=== PATIENT | female | born 1945 | race Caucasian/White ===

== ENCOUNTER 2020-02-12 14:06 | Inpatient (IN) ==
[2020-02-12] MEDS ORDERED: ONDANSETRON 4 MG/2 ML VIAL IV STA (14:46)
[2020-02-12] MEDS ORDERED: SODIUM CHLORIDE 0.9% 1,000 ML IV STA (14:46)
[2020-02-12 15:24] LABS: Basophils % 0.1 % (0.0-0.8); Hematocrit 39.2 VOL% (35.7-47.0); Hemoglobin 12.7 GM/DL (12.0-16.0); Immature Granulocytes % 0.4 %; Immature Granulocytes Absolute 0.06 #; Lymphocytes # 0.3 10*3/uL (1.4-4.0); Lymphocytes % 1.8 % (21.3-54.2); Mean Corpuscular HGB Conc 32.4 GM/DL (32-36); Mean Corpuscular Volume 97.3 FL (87-102); Mean Platelet Volume 11.8 FL (9.6-12.0); NRBC # 0.03 10*3/uL; Neutrophils % 94.7 % (38.7-73.9); Platelet Count 168 T/CUMM (130-400); Red Blood Count 4.03 MC/CUMM (3.8-5.5); Red Cell Distribution Width 13.2 % (9.3-17.3); White Blood Count 15.8 T/CUMM (4-12)
[2020-02-12 15:44] LABS: Band Neutrophils 15 % (0-10); Segmented Neutrophils 84 % (50-85); Total Cells Counted 100
[2020-02-12 15:45] LABS: Albumin 3.4 G/DL (3.4-5.0); Bilirubin,Total 0.8 MG/DL (0.2-1.0); Calcium 9.1 MG/DL (8.5-10.1); Osmolality,Calculated 266.4 MOS/KG (273-304); Platelet Estimate Adequate; Total Protein 7.7 G/DL (6.4-8.3)
[2020-02-12] MEDS ORDERED: PIPERACILLIN/TAZOBACTAM 3,375 MG in SODIUM CHLORIDE 0.9% 100 ML IV STA (16:14)
[2020-02-12] MEDS ORDERED: PIPERACILLIN/TAZOBACTAM 3,375 MG VIAL IV ONE (16:18)
[2020-02-12] MEDS ORDERED: SODIUM CHLORIDE 0.9% 100 ML IV ONE (16:19)
[2020-02-12] MEDS ORDERED: PROMETHAZINE 25 MG/1 ML VIAL ONE (16:23)
[2020-02-12] MEDS ORDERED: PROMETHAZINE 25 MG/1 ML VIAL IM STA (16:32)
[2020-02-12] MEDS ORDERED: DEXTROSE 10% 250 ML BAG IV PRN (16:46)
[2020-02-12] MEDS ORDERED: GLUCAGON 1 MG VIAL IM PRN (16:46)
[2020-02-12] MEDS ORDERED: LORazepam 1 MG TABLET PO PRN (16:51)
[2020-02-12] MEDS: SODIUM CHLORIDE 0.9% 1,000 ML IV SCH (18:58)
[2020-02-12] MEDS: PANTOPRAZOLE 40 MG TABLET PO SCH (20:49)
[2020-02-12] MEDS: ZALEPLON 5 MG CAPSULE PO SCH (20:50)
[2020-02-12] MEDS ORDERED: ASPIRIN EC 81 MG TABLET PO SCH (21:00)
[2020-02-12] MEDS: HYDROmorphone 2 MG/1 ML VIAL IV PRN (22:13)
[2020-02-13] MEDS: PIPERACILLIN/TAZOBACTAM 3,375 MG in SODIUM CHLORIDE 0.9% 100 ML IV SCH ×3 (04:13→20:59)
[2020-02-13] MEDS: SODIUM CHLORIDE 0.9% 1,000 ML IV SCH (04:23)
[2020-02-13 05:33] LABS: Apearance,Urine CLEAR (Clear); Bilirubin,Urine Negative (Negative); Blood, Urine Negative (Negative); Glucose,Urine (UA) Negative (Negative); Ketones,Urine 5 mg/dL (Negative); Mucus,Urine Many /LPF (Occasional); Nitrite,Urine Negative (Negative); Protein,Urine Negative; RBC,Urine 2 /HPF (0-4); Squamous Epithelial Cell,Urine Occasional /HPF (0-10); Urine Color Yellow (Yellow); Urine Specific Gravity 1.016 (1.001-1.035); Urine Urobilinogen < 2.0 EU/DL (0.2-1.0); WBC,Urine 2 /HPF (0-6)
[2020-02-13 07:06] LABS: Basophils % 0.1 % (0.0-0.8); Hematocrit 36.4 VOL% (35.7-47.0); Hemoglobin 11.7 GM/DL (12.0-16.0); Immature Granulocytes % 0.4 %; Immature Granulocytes Absolute 0.07 #; Lymphocytes # 0.4 10*3/uL (1.4-4.0); Lymphocytes % 2.2 % (21.3-54.2); Mean Corpuscular HGB Conc 32.1 GM/DL (32-36); Mean Corpuscular Volume 98.6 FL (87-102); Mean Platelet Volume 12.3 FL (9.6-12.0); Monocytes % 3.9 % (1.7-12.7); Neutrophils % 93.4 % (38.7-73.9); Platelet Count 177 T/CUMM (130-400); Red Blood Count 3.69 MC/CUMM (3.8-5.5); Red Cell Distribution Width 13.4 % (9.3-17.3); White Blood Count 18.1 T/CUMM (4-12)
[2020-02-13 07:24] LABS: Band Neutrophils 4 % (0-10); Hypochromasia 1+; Lymphocytes 3 % (20-55); Platelet Estimate Adequate; Segmented Neutrophils 88 % (50-85); Total Cells Counted 100
[2020-02-13 07:28] LABS: Albumin 2.8 G/DL (3.4-5.0); Calcium 8.6 MG/DL (8.5-10.1); Osmolality,Calculated 270.1 MOS/KG (273-304); Total Protein 6.9 G/DL (6.4-8.3)
[2020-02-13] MEDS ORDERED: LINACLOTIDE PO SCH (09:00)
[2020-02-13] MEDS: POLYETHYLENE GLYCOL POWDER 17 GM PACK PO SCH ×3 (10:13→14:18)
[2020-02-13] MEDS: PANTOPRAZOLE 40 MG TABLET PO SCH ×2 (10:16→20:59)
[2020-02-13] MEDS ORDERED: LACTATED RINGERS 1,000 ML IV SCH (12:00)
[2020-02-13] MEDS: ZALEPLON 5 MG CAPSULE PO SCH (20:59)
[2020-02-13] MEDS: LACTATED RINGERS 1,000 ML IV SCH (22:15)
[2020-02-13] MEDS: ONDANSETRON 4 MG/2 ML VIAL IV PRN (22:30)
[2020-02-14] MEDS: PIPERACILLIN/TAZOBACTAM 3,375 MG in SODIUM CHLORIDE 0.9% 100 ML IV SCH ×3 (03:39→18:50)
[2020-02-14] MEDS: LACTATED RINGERS 1,000 ML IV SCH ×2 (04:04→19:24)
[2020-02-14 05:59] LABS: Albumin 2.7 G/DL (3.4-5.0); Bilirubin,Total 1.4 MG/DL (0.2-1.0); Calcium 8.8 MG/DL (8.5-10.1); Total Protein 6.9 G/DL (6.4-8.3)
[2020-02-14] MEDS: POLYETHYLENE GLYCOL POWDER 17 GM PACK PO SCH ×4 (09:57→15:58)
[2020-02-14] MEDS: ONDANSETRON 4 MG/2 ML VIAL IV PRN ×2 (09:57→18:50)
[2020-02-14] MEDS: PANTOPRAZOLE 40 MG TABLET PO SCH ×2 (09:57→20:30)
[2020-02-14] MEDS: PROMETHAZINE 25 MG/1 ML VIAL IM PRN (20:28)
[2020-02-14] MEDS: ZALEPLON 5 MG CAPSULE PO SCH (20:30)
[2020-02-14] MEDS: HYDROmorphone 2 MG/1 ML VIAL IV PRN (20:35)
[2020-02-15] MEDS: PIPERACILLIN/TAZOBACTAM 3,375 MG in SODIUM CHLORIDE 0.9% 100 ML IV SCH ×3 (04:00→18:19)
[2020-02-15] MEDS: LACTATED RINGERS 1,000 ML IV SCH (04:10)
[2020-02-15] MEDS: POLYETHYLENE GLYCOL POWDER 17 GM PACK PO SCH ×5 (07:05→16:13)
[2020-02-15 07:34] LABS: Albumin 2.6 G/DL (3.4-5.0); Bilirubin,Total 0.8 MG/DL (0.2-1.0); Calcium 8.3 MG/DL (8.5-10.1); Osmolality,Calculated 271.8 MOS/KG (273-304); Total Protein 6.5 G/DL (6.4-8.3)
[2020-02-15] MEDS ORDERED: POTASSIUM CHLORIDE 20 MEQ TABLET PO ONE (08:21)
[2020-02-15] MEDS: PROMETHAZINE 25 MG/1 ML VIAL IM PRN (09:27)
[2020-02-15] MEDS: PANTOPRAZOLE 40 MG TABLET PO SCH ×2 (09:28→22:09)
[2020-02-15] MEDS: SODIUM BICARB INJ 100 MEQ in DEXTROSE 5% NACL 0.45% 1,000 ML IV SCH ×2 (10:28→23:38)
[2020-02-15] MEDS: HYDROmorphone 2 MG/1 ML VIAL IV PRN (11:37)
[2020-02-15] MEDS: ZALEPLON 5 MG CAPSULE PO SCH (22:09)
[2020-02-16] MEDS: PIPERACILLIN/TAZOBACTAM 3,375 MG in SODIUM CHLORIDE 0.9% 100 ML IV SCH ×3 (02:36→18:08)
[2020-02-16 04:51] LABS: Basophils % 0.5 % (0.0-0.8); Eosinophils # 0.1 10*3/uL (0.0-0.87); Eosinophils % 1.3 % (0.00-10.9); Hematocrit 37.4 VOL% (35.7-47.0); Hemoglobin 11.8 GM/DL (12.0-16.0); Immature Granulocytes % 0.4 %; Immature Granulocytes Absolute 0.03 #; Lymphocytes # 0.8 10*3/uL (1.4-4.0); Lymphocytes % 9.7 % (21.3-54.2); Mean Corpuscular HGB Conc 31.6 GM/DL (32-36); Mean Corpuscular Volume 98.9 FL (87-102); Monocytes % 11.4 % (1.7-12.7); Neutrophils % 76.7 % (38.7-73.9); Platelet Count 190 T/CUMM (130-400); Red Blood Count 3.78 MC/CUMM (3.8-5.5); Red Cell Distribution Width 13.3 % (9.3-17.3); White Blood Count 7.8 T/CUMM (4-12)
[2020-02-16 05:06] LABS: PT Patient Result 11.2 SECS (9.8-11.9)
[2020-02-16 05:23] LABS: Albumin 2.6 G/DL (3.4-5.0); Bilirubin,Total 0.8 MG/DL (0.2-1.0); Calcium 8.2 MG/DL (8.5-10.1); Osmolality,Calculated 276.7 MOS/KG (273-304); Total Protein 6.7 G/DL (6.4-8.3)
[2020-02-16] MEDS: SODIUM BICARB INJ 100 MEQ in DEXTROSE 5% NACL 0.45% 1,000 ML IV SCH (08:12)
[2020-02-16] MEDS: POTASSIUM CHLORIDE RIDER 10 MEQ in PREMIX 1 EACH IV SCH ×6 (08:18→18:09)
[2020-02-16] MEDS: POLYETHYLENE GLYCOL POWDER 17 GM PACK PO SCH ×4 (08:21→15:20)
[2020-02-16] MEDS: PANTOPRAZOLE 40 MG TABLET PO SCH ×2 (08:22→21:44)
[2020-02-16] MEDS: PROMETHAZINE 25 MG/1 ML VIAL IM PRN (08:29)
[2020-02-16] MEDS ORDERED: POTASSIUM CHLORIDE 20 MEQ TABLET PO SCH (09:00)
[2020-02-16] MEDS: HYDROmorphone 2 MG/1 ML VIAL IV PRN (10:21)
[2020-02-16] MEDS ORDERED: POTASSIUM CHLORIDE RIDER 10 MEQ in PREMIX 1 EACH IV SCH (18:30)
[2020-02-16] MEDS: ZALEPLON 5 MG CAPSULE PO SCH (21:44)
[2020-02-17] MEDS: HYDROmorphone 2 MG/1 ML VIAL IV PRN ×2 (02:03→22:39)
[2020-02-17] MEDS: PIPERACILLIN/TAZOBACTAM 3,375 MG in SODIUM CHLORIDE 0.9% 100 ML IV SCH ×3 (03:26→20:35)
[2020-02-17 06:02] LABS: Basophils # 0.1 10*3/uL (0.0-0.2); Basophils % 0.8 % (0.0-0.8); Eosinophils # 0.2 10*3/uL (0.0-0.87); Eosinophils % 3.4 % (0.00-10.9); Hematocrit 34.6 VOL% (35.7-47.0); Hemoglobin 11.2 GM/DL (12.0-16.0); Immature Granulocytes % 0.5 %; Immature Granulocytes Absolute 0.03 #; Lymphocytes # 1.2 10*3/uL (1.4-4.0); Lymphocytes % 19.3 % (21.3-54.2); Mean Corpuscular HGB Conc 32.4 GM/DL (32-36); Mean Corpuscular Volume 97.5 FL (87-102); Mean Platelet Volume 11.4 FL (9.6-12.0); Monocytes % 11.1 % (1.7-12.7); Neutrophils % 64.9 % (38.7-73.9); Platelet Count 184 T/CUMM (130-400); Red Blood Count 3.55 MC/CUMM (3.8-5.5); Red Cell Distribution Width 13.2 % (9.3-17.3); White Blood Count 6.4 T/CUMM (4-12)
[2020-02-17 06:18] LABS: Albumin 2.6 G/DL (3.4-5.0); Calcium 8.6 MG/DL (8.5-10.1); Total Protein 6.8 G/DL (6.4-8.3)
[2020-02-17] MEDS: POLYETHYLENE GLYCOL POWDER 17 GM PACK PO SCH ×4 (07:08→16:46)
[2020-02-17] MEDS ORDERED: SODIUM PHOSPHATE ENEMA 133 ML BOTTLE RECTAL ONE (08:30)
[2020-02-17] MEDS ORDERED: LIDOCAINE 100 MG/5 ML SYRINGE ONE (09:00)
[2020-02-17] MEDS ORDERED: PHENYLEPHRINE 1 MG/10 ML SYRINGE IV ONE (09:00)
[2020-02-17] MEDS ORDERED: ONDANSETRON 4 MG/2 ML VIAL ONE (09:00)
[2020-02-17] MEDS ORDERED: propofoL 200 MG/20 ML VIAL IV ONE (09:00)
[2020-02-17] MEDS: LACTATED RINGERS 1,000 ML IV SCH (09:29)
[2020-02-17] MEDS: POTASSIUM CHLORIDE RIDER 10 MEQ in PREMIX 1 EACH IV SCH ×2 (09:31→14:30)
[2020-02-17] MEDS: PANTOPRAZOLE 40 MG TABLET PO SCH ×2 (09:38→20:35)
[2020-02-17] MEDS ORDERED: INDOCYANINE GREEN 25 MG VIAL IV ONE (10:00)
[2020-02-17] MEDS ORDERED: cefOXitin 2,000 MG in SYRINGE 1 EACH IV ONE (10:00)
[2020-02-17] MEDS: ZALEPLON 5 MG CAPSULE PO SCH (20:35)
[2020-02-18] MEDS: PIPERACILLIN/TAZOBACTAM 3,375 MG in SODIUM CHLORIDE 0.9% 100 ML IV SCH (02:53)
[2020-02-18] MEDS ORDERED: BUPIVACAINE MPF 0.25% 30 ML VIAL ONE (06:20)
[2020-02-18] MEDS ORDERED: LIDOCAINE 1%/EPI INJ 20 ML VIAL ONE (06:20)
[2020-02-18] MEDS ORDERED: TISSUE ADHESIVE 1 EACH APPLICATOR TOP ONE (06:20)
[2020-02-18 07:59] LABS: Calcium 8.4 MG/DL (8.5-10.1); Osmolality,Calculated 270.8 MOS/KG (273-304)
[2020-02-18] MEDS: PANTOPRAZOLE 40 MG TABLET PO SCH (09:16)
[2020-02-18] MEDS: POLYETHYLENE GLYCOL POWDER 17 GM PACK PO SCH ×3 (09:21→15:01)
[2020-02-18] MEDS: LACTATED RINGERS 1,000 ML IV SCH (10:04)
[2020-02-18 11:46] VITALS: BP 134/59
[2020-02-18] MEDS: ONDANSETRON 4 MG/2 ML VIAL IV PRN (13:10)
[2020-02-18 13:51] LABS: Basophils % 0.6 % (0.0-0.8); Eosinophils # 0.2 10*3/uL (0.0-0.87); Eosinophils % 2.3 % (0.00-10.9); Hematocrit 35.8 VOL% (35.7-47.0); Hemoglobin 11.5 GM/DL (12.0-16.0); Immature Granulocytes % 0.3 %; Immature Granulocytes Absolute 0.02 #; Lymphocytes # 0.8 10*3/uL (1.4-4.0); Lymphocytes % 11.3 % (21.3-54.2); Mean Corpuscular HGB Conc 32.1 GM/DL (32-36); Mean Corpuscular Volume 98.1 FL (87-102); Mean Platelet Volume 11.2 FL (9.6-12.0); Monocytes % 9.2 % (1.7-12.7); Neutrophils % 76.3 % (38.7-73.9); Platelet Count 208 T/CUMM (130-400); Red Blood Count 3.65 MC/CUMM (3.8-5.5); Red Cell Distribution Width 13.1 % (9.3-17.3); White Blood Count 6.6 T/CUMM (4-12)
[2020-02-18 14:14] LABS: Alanine Aminotransferase 28 U/L (13-56); Albumin 2.8 G/DL (3.4-5.0); Alkaline Phosphatase 117 U/L (45-117); Aspartate Amino Transferase 27 U/L (0-37); Bilirubin,Total < 0.39 MG/DL (0.2-1.0); Blood Urea Nitrogen 12 MG/DL (7-18); Calcium 8.5 MG/DL (8.5-10.1); Estimated Glom Filtration Rate 90 ML/MIN; Glucose 123 MG/DL (74-106); Osmolality,Calculated 273.8 MOS/KG (273-304); Total Protein 6.8 G/DL (6.4-8.3)
== END 2020-02-18 16:53 | disposition home or self-care (01) | DRG 439 ==
LOC: N.ED 14:06 → SUATTDRO 16:46 → N.EDINP 16:46 → N.3E 17:52
PROVIDERS: ADMIT Emergency Medicine; ATTEND Family Medicine